=== PATIENT | male | born 1990 | race Caucasian/White ===

== ENCOUNTER 2018-08-10 18:38 | Emergency (ER) | payer MEDICAID ==
[~2018-08-10] VITALS: Ht 175.3 cm; Wt 78.0 kg
[~2018-08-10 18:38] MED LIST: LURA60TA2; MIRT15TA PO
[2018-08-10 18:44] VITALS: BP 159/109
== END 2018-08-10 20:45 | disposition left against medical advice (07) ==
LOC: ER 18:38
DX: R11.10 Vomiting, unspecified (principal); T50.7X5A Adverse effect of analeptics and opioid receptor antagonists, initial encounter; R42 Dizziness and giddiness; Z53.21 Procedure and treatment not carried out due to patient leaving prior to being seen by health care provider; Y92.89 Other specified places as the place of occurrence of the external cause